=== PATIENT | female | born 1940 | race Caucasian/White ===

== ENCOUNTER 2017-11-12 02:08 | Emergency (ER) | payer MEDICARE, OTHER ==
[2017-11-12 02:32] VITALS: BP 171/85
[2017-11-12] MEDS ORDERED: Acetaminophen/oxyCODONE 325-5 MG Tab PO ONE ×2 (02:45→03:41)
--- NOTE | 2017-11-12 02:46 | EDM.PDOC ---
ED HPI GENERAL MEDICAL PROBLEM - General Chief Complaint: Abdominal Pain Stated Complaint: PAIN IN HIP Time Seen by Provider: 11/12/17 02:21 Source of Information: Reports: Patient History Limitations: Reports: No Limitations - History of Present Illness INITIAL COMMENTS - FREE TEXT/NARRATIVE: The patient is a 77-year-old female with a chief complaint of right hip pain. No injury. For the past 3 days, she's had sharp pain in her low back that comes across her right hip towards her groin area. The pain is fairly constant. It is not related to movement. Does seem a little bit better with sitting. It is not related to leg movements. She is taking Motrin with mild relief. No additional joint pain. No fever or recent illness. No abdominal or pelvic pain. Denies history of similar symptoms previously. No unusual exertion or exercise. She also feels like she has some numbness along the right lateral hip area. No leg weakness or numbness. No urinary symptoms. Right Lower Flank Pain Score (Numeric/FACES): 8 - Related Data Allergies Allergy/AdvReac Type Severity Reaction Status Date / Time celecoxib [From Celebrex] Allergy Tachycardia Verified 04/01/16 17:22 hydrochlorothiazide Allergy Rash Verified 11/12/17 02:32 amoxicillin Allergy Hives Uncoded 04/01/16 17:22 Home Meds: Home Meds Levothyroxine 25 mcg PO DAILY 04/01/16 [History] Ibuprofen 600 mg PO QID PRN #40 tablet 11/12/17 [Rx] Valsartan [Diovan] 80 mg PO DAILY 11/12/17 [History] oxyCODONE 5 mg PO Q6H PRN #15 tablet 11/12/17 [Rx] Past Medical History Cardiovascular History: Reports: Hypertension Gastrointestinal History: Reports: GERD Endocrine/Metabolic History: Reports: Hypothyroidism - Past Surgical History Cardiovascular Surgical History: Reports: Vascular Surgery Female Surgical History: Reports: Hysterectomy, Other (See Below) Social & Family History - Family History Family Medical History: Noncontributory - Tobacco Use Smoking Status *Q: Unknown Ever Smoked - Recreational Drug Use Recreational Drug Use: Yes - Living Situation & Occupation Living situation: Reports: , with Spouse Occupation: Other ED ROS GENERAL - Review of Systems Review Of Systems: See Below Constitutional: Denies: Fever Respiratory: Reports: No Symptoms Cardiovascular: Reports: No Symptoms GI/Abdominal: Denies: Abdominal Pain : Reports: No Symptoms. Denies: Flank Pain Neurological: Reports: Numbness, Paresthesia. Denies: Weakness ED EXAM, GI/ABD - Physical Exam Exam: See Below Exam Limited By: No Limitations General Appearance: Alert, WD/WN, No Apparent Distress Eyes: Bilateral: Normal Appearance Ears: Normal External Exam Nose: Normal Inspection Throat/Mouth: Normal Inspection, Normal Voice, No Airway Compromise Head: Atraumatic, Normocephalic Neck: Normal Inspection, Supple, Non-Tender, Full Range of Motion Respiratory/Chest: No Respiratory Distress, Lungs Clear, Normal Breath Sounds, Chest Non-Tender Cardiovascular: Normal Peripheral Pulses, Regular Rate, Rhythm, No Murmur GI/Abdominal Exam: Soft, Non-Tender Back Exam: Normal Inspection, Other (Mild diffuse lumbar tenderness, no step- offs or deformities.) Extremities: Normal Inspection, Other (Right lower extremity: Moderate tenderness of right hip. Full range of motion and no change in level of pain when I range the hip. No deformity. She does have some subjective numbness to the L2 distribution along the lateral hip area. No knee tenderness or effusion. Distal motor/sensation/perfusion intact.) Neurological: Alert, Oriented, Normal Cognition, Other (No motor deficit) Psychiatric: Normal Affect, Normal Mood Course - Vital Signs Last Recorded V/S: Last Vital Signs Temp 35.9 C 11/12/17 02:28 Pulse 63 11/12/17 02:28 Resp 18 11/12/17 02:28 BP 171/85 H 11/12/17 02:28 Pulse Ox 97 11/12/17 02:28 - Orders/Labs/Meds Orders: Active Orders 24 hr Category Date Time Status Hip Min 2V or 3V w Pelvis Rt [CR] Stat Exams 11/12/17 02:45 Ordered Lumbar Spine 2 or 3V [CR] Stat Exams 11/12/17 02:45 Ordered Meds: Medications Discontinued Medications Generic Name Dose Route Start Last Admin Trade Name Lebronq PRN Reason Stop Dose Admin Ibuprofen 600 mg 11/12/17 03:41 Motrin PO 11/12/17 03:42 ONETIME ONE Oxycodone/Acetaminophen 1 tab 11/12/17 02:45 11/12/17 02:50 Percocet 325-5 Mg PO 11/12/17 02:46 1 tab ONETIME ONE Administration Oxycodone/Acetaminophen 1 tab 11/12/17 03:41 Percocet 325-5 Mg PO 11/12/17 03:42 ONETIME ONE Departure - Departure Time of Disposition: 03:41 Disposition: Home, Self-Care 01 Clinical Impression: Lumbar radiculopathy, acute - Discharge Information Prescriptions: Ibuprofen 600 mg PO QID PRN #40 tablet PRN Reason: Pain oxyCODONE 5 mg PO Q6H PRN #15 tablet PRN Reason: Pain Instructions: Lumbosacral Radiculopathy Referrals: Alverto Sarmiento MD [Primary Care Provider] - Forms: ED Department Discharge Additional Instructions: 1. Take ibuprofen as needed for pain 2. Take oxycodone as needed for severe pain. No driving while taking this medication as it could make you sleepy, dizzy, or confused. 3. Follow up with your primary doctor as soon as possible for further care, especially if not improving this week. 4. Return to the ED for any new or concerning symptoms, including severe pain, weakness in legs, fever, or other concerning symptoms - My Orders Last 24 Hours: My Active Orders 11/12/17 02:45 Hip Min 2V or 3V w Pelvis Rt [CR] Stat Lumbar Spine 2 or 3V [CR] Stat - Assessment/Plan Last 24 Hours: My Active Orders 11/12/17 02:45 Hip Min 2V or 3V w Pelvis Rt [CR] Stat Lumbar Spine 2 or 3V [CR] Stat
[2017-11-12] MEDS ORDERED: Ibuprofen 600 MG Tab PO ONE (03:41)
--- NOTE | 2017-11-12 08:32 | CR ---
Pelvis and right hip: AP view of the pelvis was obtained as well as AP and frog-leg lateral views of the right hip. Comparison: No prior study. Joint spaces within both hips are maintained. Sacroiliac joints are within normal limits. Degenerative change is seen within the spine. Impression: 1. Degenerative change within the spine. 2. AP pelvis and two-view right hip exam are otherwise unremarkable. Diagnostic code #2
--- NOTE | 2017-11-12 08:32 | CR ---
Lumbar spine: AP, lateral and coned-down lateral views centered to the lumbosacral junction were obtained. Comparison: No prior lumbar spine exam. Severe disc space narrowing is seen at L2-L3 and L3-L4 with vacuum phenomena. Minimal retrolisthesis is seen at both these levels. Mild disc space narrowing is noted at T12-L1 and L1-L2. Scattered endplate osteophytes are seen. Pedicles as well as visualized transverse and spinous processes are intact. Sacroiliac joints are within normal limits. Mild vascular calcification is seen. Impression: 1. Degenerative change as described above most severe at L2-L3 and L3-L4. Diagnostic code #2
== END 2017-11-12 03:54 | disposition home or self-care (01) ==
LOC: JD.ED 02:08
DX: M54.16 Radiculopathy, lumbar region (principal); I10 Essential (primary) hypertension; Z88.1 Allergy status to other antibiotic agents; Z88.8 Allergy status to other drugs, medicaments and biological substances; Z79.899 Other long term (current) drug therapy
CPT/HCPCS: 72100; 73502; 99283; A9270

== ENCOUNTER 2024-07-13 16:50 | Emergency (ER) | payer MEDICARE, OTHER ==
[2024-07-13 18:52] LABS: BASOPHILS PERCENT AUTO 0.5 % (0.0-1.0); EOSINOPHILS PERCENT AUTO 0.5 % (0.0-6.0); HEMATOCRIT 35.1 % (37.0-47.0); IMMATURE GRAN ABSOLUTE AUTO 0.01 K/mm3 (0.00-0.05); IMMATURE GRAN PERCENT AUTO 0.2 % (0.0-0.4); LYMPHOCYTES ABSOLUTE AUTO 1.1 K/mm3 (1.0-4.8); LYMPHOCYTES PERCENT AUTO 17.7 % (24.0-44.0); MEAN CORPUSCULAR HEMOGLOBIN 32.3 pg (28.0-32.0); MEAN CORPUSCULAR HGB CONC 34.2 g/dl (32.0-36.0); MEAN CORPUSCULAR VOLUME 94.4 fl (83.0-99.0); MEAN PLATELET VOLUME 7.6 fl (9.4-12.3); MONOCYTES ABSOLUTE AUTO 0.7 K/mm3 (0.0-0.8); MONOCYTES PERCENT AUTO 11.1 % (0.0-8.0); NEUTROPHILS ABSOLUTE AUTO 4.3 K/mm3 (1.8-7.7); PLATELET COUNT,PLT 335 K/mm3 (150-400); RED BLOOD CELL COUNT 3.72 M/mm3 (4.10-5.30); WHITE BLOOD CELL COUNT,WBC 6.15 K/mm3 (3.9-11.3)
[2024-07-13 19:25] LABS: ALBUMIN 3.3 g/dl (3.4-5.0); ANION GAP 7.7 (5-15); BILIRUBIN TOTAL 0.2 mg/dL (0.2-1.0); BUN/CREATININE RATIO 13.8 (14-18); CREATININE 0.8 mg/dL (0.55-1.02); EST CRCL DRUG DOSING (CG) 57.62 mL/min; POTASSIUM,K 3.7 mEq/L (3.5-5.1); PROTEIN TOTAL,TP 6.6 g/dl (6.4-8.2)
[2024-07-13] MEDS: hydrALAZINE 10 MG Tab PO ONE (19:56)
[2024-07-13] MEDS: Sodium Chloride 0.9% 10 ML Syringe FLUSH ONE (19:58)
[2024-07-13] MEDS: Sodium Chloride 0.9% 100 ML IV SCH (20:44)
[2024-07-13] MEDS: Iopamidol 755 Mg/ML 100 ML Bottle IVPUSH ONE (20:44)
[2024-07-13] MEDS: Sodium Chloride 0.9% 10 ML Syringe FLUSH PRN (20:44)
[2024-07-13 20:59] LABS: APPEARANCE,URINE CLEAR (Clear); BILIRUBIN,URINE NEGATIVE (Negative); COLOR,URINE LIGHT YELLOW (Yellow); GLUCOSE,URINE NEGATIVE (Negative); KETONES,URINE NEGATIVE (Negative); LEUKOCYTE ESTERASE,URINE NEGATIVE (Negative); NITRITE,URINE NEGATIVE (Negative); OCCULT BLOOD,URINE NEGATIVE (Negative); PH,URINE 7.5 (5.0-8.0); PROTEIN,URINE NEGATIVE (Negative); UROBILINOGEN,URINE 0.2 (0.2-1.0)
[2024-07-13 21:47] VITALS: BP 166/85; PULSE 80
== END 2024-07-13 21:46 | disposition home or self-care (01) ==
LOC: JD.ED 16:50
DX: I10 Essential (primary) hypertension (principal); E03.9 Hypothyroidism, unspecified; K21.9 Gastro-esophageal reflux disease without esophagitis; Z90.710 Acquired absence of both cervix and uterus; Z79.890 Hormone replacement therapy; Z79.899 Other long term (current) drug therapy; Z88.0 Allergy status to penicillin; Z88.1 Allergy status to other antibiotic agents; Z88.8 Allergy status to other drugs, medicaments and biological substances
CPT/HCPCS: 36415; 71275; 80053; 81003; 84484; 85025; 85379; 93005; 99285; A9270; J3490; Q9967

== ENCOUNTER 2025-02-09 07:42 | Day surgery (SDC) | payer MEDICARE, OTHER ==
[~2025-02-09 07:42] MED LIST: Dexamethasone 4 MG/ML 5 ML MDV ONE; Lidocaine 1% 5 ML VIAL ONE; Midazolam 1 MG/ML 2 ML SDV ONE; Ondansetron 4 MG/2 ML SDV ONE; Propofol 200 MG/20 ML SDV ONE; Sodium Chloride 0.9% 10 ML Syringe FLUSH PRN; Sodium Chloride 0.9% 10 ML Syringe FLUSH SCH; ceFAZolin 2 GM Vial ONE
[2025-02-09] MEDS: Lactated Ringers 1,000 ML IV SCH (08:10)
[2025-02-09] MEDS ORDERED: Phenylephrine 1% 10 MG/ML SDV ONE (08:47)
[2025-02-09] MEDS ORDERED: Ketorolac 15 MG/ML SDV ONE (08:48)
[2025-02-09] MEDS ORDERED: Sodium Chloride 0.9% 100 ML ONE (08:48)
[2025-02-09] MEDS: VANCOmycin 1 GM SDV ONE (08:56)
[2025-02-09] MEDS: Tranexamic Acid 1,000 MG/10 ML Vial ONE (08:57)
[2025-02-09] MEDS ORDERED: Propofol 200 MG/20 ML SDV ONE (09:51)
[2025-02-09] MEDS ORDERED: fentaNYL 100 MCG/2 ML SDV ONE (09:59)
[2025-02-09] MEDS ORDERED: Lactated Ringers 1,000 ML ONE (10:07)
[2025-02-09] MEDS: Morphine 8 MG, EPINEPHrine 0.3 MG, Cefuroxime 750 MG, Ketorolac 30 MG, Sodium Chloride ... PRN (10:49)
[2025-02-09] MEDS ORDERED: fentaNYL 100 MCG/2 ML SDV IVPUSH PRN (11:24)
[2025-02-09] MEDS ORDERED: Ondansetron 4 MG/2 ML SDV IVPUSH PRN (11:24)
[2025-02-09] MEDS ORDERED: HYDROmorphone 0.5 MG/0.5 ML Syringe IVPUSH PRN (11:24)
[2025-02-09] MEDS: Acetaminophen/HYDROcodone 325-5 MG Tab PO PRN (12:33)
[2025-02-09 16:32] VITALS: BP 115/56; PULSE 66
== END 2025-02-09 16:45 | disposition home or self-care (01) ==
LOC: JD.SDS 07:42
PROVIDERS: ATTEND Orthopaedic Surgery
DX: M16.11 Unilateral primary osteoarthritis, right hip (principal); K21.9 Gastro-esophageal reflux disease without esophagitis; I10 Essential (primary) hypertension; F41.9 Anxiety disorder, unspecified; E78.00 Pure hypercholesterolemia, unspecified; Z79.82 Long term (current) use of aspirin; Z79.899 Other long term (current) drug therapy; Z88.8 Allergy status to other drugs, medicaments and biological substances; Z88.0 Allergy status to penicillin
CPT/HCPCS: 0055T; 27130; 73501; 82947; 97116; 97161; A9270; C1713; C1776; J0171; J0690; J0697; J1100; J1885; J2003; J2250; J2272; J2371; J2405; J2704; J3010; J7120; 01214; 99100; J3490

== ENCOUNTER 2025-04-15 06:00 | Day surgery (SDC) | payer MEDICARE, OTHER ==
[~2025-04-15 06:00] MED LIST changes: -Dexamethasone 4 MG/ML 5 ML MDV ONE; +Lactated Ringers 1,000 ML IV SCH; -Lidocaine 1% 5 ML VIAL ONE; -Midazolam 1 MG/ML 2 ML SDV ONE; -Ondansetron 4 MG/2 ML SDV ONE; -Propofol 200 MG/20 ML SDV ONE; -ceFAZolin 2 GM Vial ONE
[2025-04-15] MEDS ORDERED: ceFAZolin 2 GM Vial ONE (07:12)
[2025-04-15] MEDS: Bupivacaine 0.25% 10 ML SDV ONE (07:46)
[2025-04-15] MEDS: Lidocaine 1% 10 ML MDV ONE (07:46)
[2025-04-15 08:06] VITALS: BP 148/87; PULSE 65
== END 2025-04-15 08:05 | disposition home or self-care (01) ==
LOC: JD.SDS 06:00
PROVIDERS: ATTEND Orthopaedic Surgery
DX: G56.11 Other lesions of median nerve, right upper limb (principal); G56.01 Carpal tunnel syndrome, right upper limb; I10 Essential (primary) hypertension; E78.00 Pure hypercholesterolemia, unspecified; K21.9 Gastro-esophageal reflux disease without esophagitis; E03.9 Hypothyroidism, unspecified; Z79.82 Long term (current) use of aspirin; Z79.890 Hormone replacement therapy; Z79.899 Other long term (current) drug therapy; Z88.0 Allergy status to penicillin; Z88.8 Allergy status to other drugs, medicaments and biological substances
CPT/HCPCS: 64721; J0665; J0690; J2003

== ENCOUNTER 2025-04-30 06:15 | Day surgery (SDC) | payer MEDICARE, OTHER ==
[2025-04-30] MEDS ORDERED: ceFAZolin 2 GM Vial ONE (06:17)
[2025-04-30] MEDS: Lidocaine 1% 10 ML MDV ONE (07:08)
[2025-04-30] MEDS: Bupivacaine 0.25% 10 ML SDV ONE (07:08)
[2025-04-30 08:03] VITALS: BP 162/54; PULSE 64
== END 2025-04-30 07:38 | disposition home or self-care (01) ==
LOC: JD.SDS 06:15
PROVIDERS: ATTEND Orthopaedic Surgery
DX: G56.12 Other lesions of median nerve, left upper limb (principal); G56.03 Carpal tunnel syndrome, bilateral upper limbs; I11.0 Hypertensive heart disease with heart failure; I50.9 Heart failure, unspecified; K21.9 Gastro-esophageal reflux disease without esophagitis; E78.5 Hyperlipidemia, unspecified; E03.9 Hypothyroidism, unspecified; Z79.890 Hormone replacement therapy; Z79.899 Other long term (current) drug therapy; Z88.0 Allergy status to penicillin; Z88.8 Allergy status to other drugs, medicaments and biological substances
CPT/HCPCS: 64721; J0665; J0690; J2003

== ENCOUNTER 2025-05-20 17:43 | Observation (INO) | payer MEDICARE, OTHER ==
[2025-05-20 18:15] LABS: BASOPHILS PERCENT AUTO 0.6 % (0.0-1.0); EOSINOPHILS ABSOLUTE AUTO 0.1 K/mm3 (0.0-0.4); EOSINOPHILS PERCENT AUTO 1.2 % (0.0-6.0); HEMATOCRIT 35.4 % (37.0-47.0); HEMOGLOBIN 12.1 gm/dl (12.0-16.0); IMMATURE GRAN ABSOLUTE AUTO 0.01 K/mm3 (0.00-0.05); IMMATURE GRAN PERCENT AUTO 0.2 % (0.0-0.4); LYMPHOCYTES ABSOLUTE AUTO 1.2 K/mm3 (1.0-4.8); LYMPHOCYTES PERCENT AUTO 17.5 % (24.0-44.0); MEAN CORPUSCULAR HEMOGLOBIN 31.6 pg (28.0-32.0); MEAN CORPUSCULAR HGB CONC 34.2 g/dl (32.0-36.0); MEAN CORPUSCULAR VOLUME 92.4 fl (83.0-99.0); MEAN PLATELET VOLUME 7.8 fl (9.4-12.3); MONOCYTES ABSOLUTE AUTO 0.8 K/mm3 (0.0-0.8); MONOCYTES PERCENT AUTO 11.6 % (0.0-8.0); NEUTROPHILS ABSOLUTE AUTO 4.5 K/mm3 (1.8-7.7); NEUTROPHILS PERCENT AUTO 68.9 % (41.0-71.0); PLATELET COUNT,PLT 270 K/mm3 (150-400); RED BLOOD CELL COUNT 3.83 M/mm3 (4.10-5.30); WHITE BLOOD CELL COUNT,WBC 6.56 K/mm3 (3.9-11.3)
[2025-05-20 18:42] LABS: INR 0.97; PROTHROMBIN TIME 10.3 SECONDS (9.7-12.0)
[2025-05-20] MEDS: Famotidine 20 MG/2 ML SDV IVPUSH ONE (19:00)
[2025-05-20] MEDS: Ondansetron 4 MG/2 ML SDV IVPUSH ONE (19:00)
[2025-05-20] MEDS: Acetaminophen 325 MG Tab PO ONE (19:01)
[2025-05-20] MEDS: Pantoprazole 40 MG Vial IVPUSH ONE (19:01)
[2025-05-20 19:13] LABS: A/G RATIO 1.3 (1-2); ALBUMIN 3.8 g/dl (3.4-5.0); ANION GAP 13.4 (5-15); BILIRUBIN TOTAL 0.4 mg/dL (0.2-1.0); BUN/CREATININE RATIO 17.1 (14-18); CALCIUM 8.9 mg/dL (8.5-10.1); CREATININE 0.7 mg/dL (0.55-1.02); EST CRCL DRUG DOSING (CG) 60.35 mL/min; MAGNESIUM 2.1 mg/dL (1.8-2.4); POTASSIUM,K 3.4 mEq/L (3.5-5.1); PROTEIN TOTAL,TP 6.7 g/dl (6.4-8.2)
[2025-05-20 19:41] LABS: APPEARANCE,URINE CLEAR (Clear); BILIRUBIN,URINE NEGATIVE (Negative); COLOR,URINE YELLOW (Yellow); GLUCOSE,URINE NEGATIVE (Negative); KETONES,URINE 2+ (Negative); LEUKOCYTE ESTERASE,URINE NEGATIVE (Negative); NITRITE,URINE NEGATIVE (Negative); OCCULT BLOOD,URINE TRACE-LYSED (Negative); PROTEIN,URINE NEGATIVE (Negative); UROBILINOGEN,URINE 0.2 (0.2-1.0)
[2025-05-20] MEDS: Sodium Chloride 0.9% 500 ML IV ONE (19:45)
[2025-05-20 19:47] LABS: BACTERIA,URINE FEW /hpf (FEW); MUCUS,URINE FEW /hpf (FEW); SQUAMOUS EPITHELIAL CELLS,UR 0-5 /hpf (0-5); WBC,URINE 0-5 /hpf (0-5)
[2025-05-20] MEDS: Iopamidol 755 Mg/ML 100 ML Bottle IVPUSH ONE (20:00)
[2025-05-20] MEDS: Sodium Chloride 0.9% 10 ML Syringe FLUSH ONE (20:00)
[2025-05-20] MEDS: Sodium Chloride 0.9% 100 ML IV SCH (20:00)
[2025-05-21] MEDS: Acetaminophen 325 MG Tab PO PRN (02:36)
[2025-05-21] MEDS: Levothyroxine 25 MCG Tab PO SCH (06:48)
[2025-05-21 07:43] LABS: ANION GAP 11.2 (5-15); BUN/CREATININE RATIO 15.7 (14-18); CALCIUM 8.1 mg/dL (8.5-10.1); CREATININE 0.7 mg/dL (0.55-1.02); EST CRCL DRUG DOSING (CG) 64.69 mL/min; POTASSIUM,K 4.2 mEq/L (3.5-5.1)
[2025-05-21 08:20] VITALS: PULSE 74
[2025-05-21 08:21] VITALS: BP 148/68
[2025-05-21] MEDS: amLODIPine 2.5 MG Tab PO SCH (08:44)
[2025-05-21] MEDS: Pantoprazole 40 MG Tab.CR PO SCH (08:44)
[2025-05-21] MEDS: Metoprolol Succinate 25 MG Tab.ER PO SCH (08:45)
[2025-05-21] MEDS: Losartan 100 MG Tab PO SCH (08:45)
[2025-05-21] MEDS: Gadobenate Dimeglumine 529 MG/ML 15 ML SDV IVPUSH ONE (10:09)
[2025-05-21] MEDS: Sodium Chloride 0.9% 10 ML Syringe FLUSH SCH (10:10)
== END 2025-05-21 11:34 | disposition home or self-care (01) ==
LOC: JD.ED 17:43 → JD.MS 21:13
PROVIDERS: ADMIT Internal Medicine; ATTEND Internal Medicine
DX: R51.9 Headache, unspecified (principal); R07.9 Chest pain, unspecified; I10 Essential (primary) hypertension; E78.5 Hyperlipidemia, unspecified; E03.9 Hypothyroidism, unspecified; Z79.890 Hormone replacement therapy; Z79.899 Other long term (current) drug therapy; Z88.0 Allergy status to penicillin; Z88.5 Allergy status to narcotic agent
CPT/HCPCS: 36415; 70450; 70553; 71045; 71275; 80048; 80053; 81001; 82550; 83605; 83690; 83735; 83880; 84484; 85025; 85610; 86850; 86900; 86901; 93005; 96361; 96374; 96375; 99285; A9270; A9577; G0378; J2405; J2470; J7030; Q9967; 93010; 99222